=== PATIENT | female | born 1950 | race Caucasian/White ===

== ENCOUNTER 2017-12-27 09:58 | Day surgery (SDC) | payer MEDICARE, OTHER ==
[2017-12-27] MEDS ORDERED: FENTAnyl 50 MCG/ML VIAL (12:09)
[2017-12-27] MEDS ORDERED: PROPOFOL 20 ML (12:09)
== END 2017-12-27 15:08 | disposition home or self-care (01) ==
LOC: GIL 09:58
DX: Z12.11 Encounter for screening for malignant neoplasm of colon (principal); D12.0 Benign neoplasm of cecum; D50.9 Iron deficiency anemia, unspecified; K64.8 Other hemorrhoids; I25.10 Atherosclerotic heart disease of native coronary artery without angina pectoris; I10 Essential (primary) hypertension
CPT/HCPCS: 45380; 88305